=== PATIENT | female | born 1980 | race Caucasian/White ===

== ENCOUNTER 2018-06-20 12:26 | Emergency (ER) | payer BC, MEDICAID ==
[2018-06-20] MEDS ORDERED: Benzocaine 20% Topical Spray UD MUCMEM ONE (12:58)
[2018-06-20] MEDS ORDERED: Lidocaine 2% Viscous Solution 15 ML Cup PO ONE (12:58)
--- NOTE | 2018-06-20 13:00 | EDM.PDOC ---
ED HPI GENERAL MEDICAL PROBLEM - General Chief Complaint: ENT Problem Stated Complaint: ORAL PAIN Time Seen by Provider: 06/20/18 12:59 Source of Information: Reports: Patient History Limitations: Reports: No Limitations - History of Present Illness INITIAL COMMENTS - FREE TEXT/NARRATIVE: HISTORY AND PHYSICAL: History of present illness: Patient is a 38-year-old female here for dental pain. Patient states that the pain started yesterday. She denies any fevers or chills. Review of systems: As per history of present illness and below otherwise all systems reviewed and negative. Past medical history: As per history of present illness and as reviewed below otherwise noncontributory. Surgical history: As per history of present illness and as reviewed below otherwise noncontributory. Social history: No reported history of drug or alcohol abuse. Family history: As per history of present illness and as reviewed below otherwise noncontributory. Physical exam: General: Patient sitting comfortably in no acute distress HEENT: Poor dentition. Left second bicuspid is cracked but no exposed nerve. There is mild erythema at the base but no abscess noted. Atraumatic, normocephalic, pupils reactive, negative for conjunctival pallor or scleral icterus, mucous membranes moist, throat clear, neck supple Lungs: Clear to auscultation, breath sounds equal bilaterally. Heart: S1S2, regular, negative for clicks, rubs, or JVD. Extremities: Atraumatic, negative for cords or calf pain. Neurovascular unremarkable. Neuro: Awake, alert, oriented. Cranial nerves II through XII unremarkable. Cerebellum unremarkable. Motor and sensory unremarkable throughout. Exam nonfocal. Notes: Diagnostics: [] Therapeutics: Dental balls Prescription: Clindamycin 300 mg Impression: Dental pain/infection Plan: 1. Take antibiotic and use dental balls as directed 2. Follow up with dentist as discussed 3. Return to ED as needed as discussed. Definitive disposition and diagnosis as appropriate pending reevaluation and review of above. left dental pain Pain Score (Numeric/FACES): 9 - Related Data Allergies Allergy/AdvReac Type Severity Reaction Status Date / Time amoxicillin Allergy Abdominal Verified 07/09/15 23:43 Pain Fish Containing Products Allergy Facial Verified 06/20/18 12:39 Swelling latex Allergy Hives Verified 07/09/15 23:43 pine nut Allergy Hives Verified 06/20/18 12:39 pollen extracts Allergy Itching Verified 06/20/18 12:39 shellfish derived Allergy Facial Verified 06/20/18 12:39 Swelling strawberry Allergy Facial Verified 06/20/18 12:39 Swelling Home Meds: Home Meds Clindamycin HCl 300 mg PO TID 10 Days #30 capsule 06/20/18 [Rx] Past Medical History - Past Health History Medical/Surgical History: Denies Medical/Surgical History - Infectious Disease History Infectious Disease History: Reports: None Social & Family History - Family History Family Medical History: Noncontributory - Tobacco Use Smoking Status *Q: Current Every Day Smoker Years of Tobacco use: 18 Packs/Tins Daily: 0.5 - Caffeine Use Caffeine Use: Reports: Coffee, Soda - Recreational Drug Use Recreational Drug Use: No ED ROS ENT - Review of Systems Review Of Systems: ROS reveals no pertinent complaints other than HPI. ED EXAM, ENT - Physical Exam Exam: See Below (see dictation) Course - Vital Signs Last Recorded V/S: Last Vital Signs Temp 36.4 C 06/20/18 12:40 Pulse 96 06/20/18 12:40 Resp 13 06/20/18 12:40 BP 107/59 L 06/20/18 12:40 Pulse Ox 98 06/20/18 12:40 - Orders/Labs/Meds Meds: Medications Discontinued Medications Generic Name Dose Route Start Last Admin Trade Name Angela PRN Reason Stop Dose Admin Benzocaine 2 each 06/20/18 12:58 Hurricaine One 20% MUCMEM 06/20/18 12:59 ONETIME ONE Lidocaine HCl 15 ml 06/20/18 12:58 Xylocaine 2% Viscous PO 06/20/18 12:59 ONETIME ONE Departure - Departure Time of Disposition: 13:10 Disposition: Home, Self-Care 01 Condition: Good Clinical Impression: Dental infection - Discharge Information Prescriptions: Clindamycin HCl 300 mg PO TID 10 Days #30 capsule Referrals: PCP,None [Primary Care Provider] - Forms: ED Department Discharge Care Plan Goals: The following information is given to patients seen in the emergency department who are being discharged to home. This information is to outline your options for follow-up care. We provide all patients seen in our emergency department with a follow-up referral. The need for follow-up, as well as the timing and circumstances, are variable depending upon the specifics of your emergency department visit. If you don't have a primary care physician on staff, we will provide you with a referral. We always advise you to contact your personal physician following an emergency department visit to inform them of the circumstance of the visit and for follow-up with them and/or the need for any referrals to a consulting specialist. The emergency department will also refer you to a specialist when appropriate. This referral assures that you have the opportunity for follow-up care with a specialist. All of these measure are taken in an effort to provide you with optimal care, which includes your follow-up. Under all circumstances we always encourage you to contact your private physician who remains a resource for coordinating your care. When calling for follow-up care, please make the office aware that this follow-up is from your recent emergency room visit. If for any reason you are refused follow-up, please contact the [facility] Emergency Department at and asked to speak to the emergency department charge nurse. [facility] [address] [place] [id number] 1. Take antibiotic and use dental balls as directed 2. Follow up with dentist as discussed 3. Return to ED as needed as discussed.
[2018-06-20 17:15] VITALS: BP 108/63
== END 2018-06-20 13:34 | disposition home or self-care (01) ==
LOC: MW.ED 12:26
DX: K04.7 Periapical abscess without sinus (principal); F17.210 Nicotine dependence, cigarettes, uncomplicated
CPT/HCPCS: 99282; A9270

== ENCOUNTER 2018-12-26 10:20 | Emergency (ER) | payer MEDICAID ==
[2018-12-26] MEDS ORDERED: Ketorolac 60 MG/2 ML SDV IM ONE (11:07)
--- NOTE | 2018-12-26 11:50 | CR ---
EXAMINATION: Left shoulder HISTORY: Pain COMPARISON: None TECHNIQUE: 3 views FINDINGS/IMPRESSION: There is no acute osseous abnormality, dislocation, or fracture. Bone mineralization and joint spaces are preserved.
--- NOTE | 2018-12-26 12:13 | EDM.PDOC ---
ED HPI GENERAL MEDICAL PROBLEM - General Chief Complaint: Upper Extremity Injury/Pain Stated Complaint: SHOULDER PAIN Time Seen by Provider: 12/26/18 11:02 Source of Information: Reports: Patient - History of Present Illness INITIAL COMMENTS - FREE TEXT/NARRATIVE: Presents reporting that she tripped on a gas hose and fell striking her left shoulder 3 days ago. Since that time she has had increasing pain in the left shoulder particularly with certain movements. Denies any other injuries area no tingling or numbness in the hand or arm. Left Shoulder Pain Score (Numeric/FACES): 7 - Related Data Allergies Allergy/AdvReac Type Severity Reaction Status Date / Time amoxicillin Allergy Abdominal Verified 12/26/18 11:01 Pain Fish Containing Products Allergy Facial Verified 12/26/18 11:01 Swelling latex Allergy Hives Verified 12/26/18 11:01 pine nut Allergy Hives Verified 12/26/18 11:01 pollen extracts Allergy Itching Verified 12/26/18 11:01 shellfish derived Allergy Facial Verified 12/26/18 11:01 Swelling strawberry Allergy Facial Verified 12/26/18 11:01 Swelling Home Meds: Home Meds . [No Known Home Meds] 12/26/18 [History] Past Medical History - Past Health History Medical/Surgical History: Denies Medical/Surgical History - Infectious Disease History Infectious Disease History: Reports: Chicken Pox Social & Family History - Family History Family Medical History: Noncontributory - Tobacco Use Smoking Status *Q: Current Every Day Smoker Years of Tobacco use: 18 Packs/Tins Daily: 0.5 - Caffeine Use Caffeine Use: Reports: Coffee, Soda - Recreational Drug Use Recreational Drug Use: Yes Drug Use in Last 12 Months: Yes Recreational Drug Type: Reports: Marijuana/Hashish Recreational Drug Use Frequency: Socially Review of Systems - Review of Systems Review Of Systems: ROS reveals no pertinent complaints other than HPI. ED EXAM, GENERAL - Physical Exam Exam: See Below Exam Limited By: No Limitations General Appearance: Alert, No Apparent Distress Ears: Normal External Exam Nose: Normal Inspection Throat/Mouth: Normal Inspection Head: Atraumatic, Normocephalic Neck: Normal Inspection, Non-Tender, Full Range of Motion Respiratory/Chest: No Respiratory Distress, Lungs Clear, Normal Breath Sounds Cardiovascular: Regular Rate, Rhythm, No Murmur Extremities: Normal Inspection, Other (Tenderness over the left ac joint. Range of motion limited by pain at 90 of flexion, 90 of abduction and 50 degrees of extension. CMS intact distally) Neurological: Alert, Oriented, Normal Cognition Psychiatric: Normal Affect, Normal Mood Skin Exam: Warm, Dry, Intact, Normal Color, No Rash Lymphatic: No Adenopathy Course - Vital Signs Last Recorded V/S: Last Vital Signs Temp 36.3 C 12/26/18 10:57 Pulse 80 12/26/18 10:57 Resp 16 12/26/18 10:57 BP 110/57 L 12/26/18 10:57 Pulse Ox 100 12/26/18 10:57 - Orders/Labs/Meds Meds: Medications Discontinued Medications Generic Name Dose Route Start Last Admin Trade Name Freq PRN Reason Stop Dose Admin Ketorolac Tromethamine 60 mg 12/26/18 11:07 12/26/18 11:20 Toradol IM 12/26/18 11:08 60 mg ONETIME ONE Administration Departure - Departure Time of Disposition: 12:13 Disposition: Home, Self-Care 01 Condition: Good Clinical Impression: Shoulder injury Qualifiers: Encounter type: initial encounter Laterality: left Qualified Code(s): S49.92XA - Unspecified injury of left shoulder and upper arm, initial encounter - Discharge Information *PRESCRIPTION DRUG MONITORING PROGRAM REVIEWED*: Not Applicable *COPY OF PRESCRIPTION DRUG MONITORING REPORT IN PATIENT RAYMOND: Not Applicable Referrals: PCP,Unknown [Primary Care Provider] - Ingrid Rolon [Ordering Only Provider] - [facility] [address] [Outside] Additional Instructions: 1. Aleve 2 tabs a.m. and p.m. or ibuprofen 2-3 tabs 3 times daily as needed for pain 2. Cool packs 20 minutes every 3-4 hours 2 left shoulder 3. If pain continues, follow-up in primary care for further evaluation.
[2018-12-26 14:36] VITALS: BP 98/47
== END 2018-12-26 12:57 | disposition home or self-care (01) ==
LOC: MW.ED 10:20
DX: S49.92XA Unspecified injury of left shoulder and upper arm, initial encounter (principal); F17.210 Nicotine dependence, cigarettes, uncomplicated; Z88.1 Allergy status to other antibiotic agents; Z91.013 Allergy to seafood; Z91.040 Latex allergy status; Z91.018 Allergy to other foods; W01.10XA Fall on same level from slipping, tripping and stumbling with subsequent striking against unspecified object, initial encounter
CPT/HCPCS: 73030; 96372; 99283; J1885